=== PATIENT | female | born 1995 | race Caucasian/White ===

== ENCOUNTER 2021-10-21 18:21 | Emergency (ER) | payer OTHER ==
[~2021-10-21 18:21] MED LIST: IBUPROFEN600 MG PO; PROVENTIL HFA6.7 GM INH; ZOFRAN ODT 4 MG4 MG PO
[2021-10-21 19:03] LABS: HEMOGLOBIN 13.5 gm/dl (12.3-15.3); RED BLOOD COUNT 4.62 M/UL (4.00-5.10); WHITE BLOOD COUNT 6.9 K/UL (4.5-11.0)
[2021-10-21 19:25] LABS: BUN/CREATININE RATIO 15 (0-10)
[2021-10-22] MEDS ORDERED: OMNICEF 300 MG300 MG PO (00:06)
== END 2021-10-22 00:20 | disposition home or self-care (01) ==
LOC: ER1 18:21
PROVIDERS: Family Medicine
DX: U07.1 COVID-19 (principal); J02.9 Acute pharyngitis, unspecified; N39.0 Urinary tract infection, site not specified
CPT/HCPCS: 0240U; 71045; 80053; 81001; 82550; 82553; 84484; 84703; 85025; 85379; 85610; 85730; 87081; 87880; 93005; 99285; Q9967